=== PATIENT | female | born 1945 ===

== ENCOUNTER 2019-06-01 05:16 | Day surgery (SDC) | payer OTHER ==
[~2019-06-01 05:16] MED LIST: CARVEDILOL12.5 MG; ESTROGEL50 GM; FOLIC ACID0.8 M1; FOSAMAX70 MG PO; LIPITOR20 MG PO; MAGNESIUM500 MG PO; NORVASC5 MG PO; VITAMIN C100 MG PO; VITAMIN D350000 UNIT PO
[2019-06-01] MEDS ORDERED: MACROBID 100 M100 MG PO (09:27)
[2019-06-01] MEDS ORDERED: ULTRACET PO (09:27)
== END 2019-06-01 12:10 ==
LOC: CIR.AMB 05:16 → ADM 10:30 → CIR.AMB 12:10
DX: N81.3 Complete uterovaginal prolapse (principal)